=== PATIENT | female | born 1990 | race Two or more races ===

== ENCOUNTER 2016-09-01 12:03 | Emergency (ER) | payer OTHER ==
[2016-09-01 12:05] VITALS: BP 115/67
[2016-09-01] MEDS ORDERED: DIPHTH,PERTUSS(ACELL),TET TOX 0.5 ML DISP.SYRIN. VAX IM ONE (12:45)
--- NOTE | 2016-09-01 12:50 | PHYS DOC ---
Past Medical History Past Medical History: No Pertinent History Past Surgical History: No Surgical History Additional Information: Nonsmoker Alcohol Use: Rarely Drug Use: None Adult General Chief Complaint Chief Complaint: LACERATION/AVULSION HPI HPI Patient is a 26 year old female who presents with right thumb laceration yesterday at work. The patient cut her thumb on a slicer. She was told by her employer that she did not need to go to the hospital. She reports that the wound continued to bleed throughout the night. Bleeding is controlled currently. She is unsure of her last tetanus immunization booster. She does not have a PCP. Review of Systems Review of Systems Constitutional: Denies fever or chills. [] Musculoskeletal: Denies back pain or joint pain. Reports distal right thumb pain. Integument: Denies rash or skin lesions. Reports distal right thumb laceration. Neurologic: Denies focal weakness or sensory changes. [] Allergies Allergies Allergies Coded Allergies Type Severity Reaction Last Updated Verified No Known Drug Allergies 09/01/16 No Physical Exam Physical Exam Constitutional: Well developed, well nourished, no acute distress, non-toxic appearance. [] HENT: Normocephalic, atraumatic, oropharynx moist. [] Eyes: PERRLA, EOMI, conjunctiva normal, no discharge. [] Skin: Warm, dry, no erythema, no rash. There is a 2 cm laceration of the right distal thumb extending from the palmar side distally to the tip and then proximally through the nail. Bleeding is controlled. There is no surrounding erythema or induration. There is no drainage from the wound. Extremities: Distal right thumb tenderness, ROM intact, no edema. Less than 2 second capillary refill distally. Light touch sensation intact distally. Neurologic: Alert and oriented X 3, normal motor function, normal sensory function, no focal deficits noted. [] Psychologic: Affect normal, judgement normal, mood normal. [] Current Patient Data Vital Signs Vital Signs Date Time Temp Pulse Resp B/P Pulse Ox O2 Delivery O2 Flow Rate FiO2 09/01/16 12:05 98.7 69 18 100 Room Air 98.7 EKG EKG [] Radiology/Procedures Radiology/Procedures [] Course & Med Decision Making Course & Med Decision Making Pertinent Labs and Imaging studies reviewed. (See chart for details) Patient is 27 female presents with right thumb lacerations sustained yesterday. She is neurovascularly intact and bleeding is controlled. I explained that to her time has passed since the injury to safely close the wound. She is instructed on wound care and return precautions. Her tetanus immunization was updated. She was instructed to follow up with the worker's comp office on Friday. The patient verbalizes understanding and agrees with plan. Dragon Disclaimer Dragon Disclaimer This electronic medical record was generated, in whole or in part, using a voice recognition dictation system. Departure Departure Impression: Primary Impression: Laceration of finger with delay in treatment Disposition: HOME, SELF-CARE Condition: STABLE Referrals: UNKNOWN PCP NAME (PCP) Patient Instructions: Fingertip Laceration, Laceration, Old, Not Sutured Additional Instructions: We are unable to close her wound at this time due to the amount of time that has elapsed since the injury. Please clean the wound with soap and water. Keep the wound covered with antibiotic ointment and a bandage. Please keep the fingernail trimmed closely to avoid touching the nail and pulling. [facility] on Friday. Please follow-up with a primary care doctor or return to the emergency Department if you noticed signs of infection including redness, swelling, or yellow/green drainage from the wound. Problem Qualifiers Primary Impression: Laceration of finger with delay in treatment Encounter type: initial encounter Qualified Code: S61.219A - Laceration without foreign body of unspecified finger without damage to nail, initial encounter KISHA SANTACRUZ Sep 01, 2016 12:50
== END 2016-09-01 12:57 | disposition home or self-care (01) ==
LOC: ER 12:18
DX: S61.011A Laceration without foreign body of right thumb without damage to nail, initial encounter (principal); W45.8XXA Other foreign body or object entering through skin, initial encounter; Y93.89 Activity, other specified; Y92.89 Other specified places as the place of occurrence of the external cause; Y99.8 Other external cause status
CPT/HCPCS: 90471; 90715; 99283-25